=== PATIENT | male | born 1955 | race Native Hawaiian/Other Pacific Islander ===

== ENCOUNTER 2020-08-12 09:22 | Emergency (ER) | payer OTHER ==
[~2020-08-12] VITALS: Ht 182.9 cm; Wt 84.6 kg
[2020-08-12 09:22] VITALS: TEMP 97.3
[2020-08-12 10:39] LABS: PLATELET COUNT 291 K/uL (142-355)
[2020-08-12 10:54] LABS: POTASSIUM 3.8 mmol/L (3.6-5.2); SODIUM 137 mmol/L (136-145)
[2020-08-12 16:29] VITALS: BP 113/44
== END 2020-08-12 16:29 | disposition short-term general hospital (02) ==
LOC: ED 09:22
PROVIDERS: Emergency Medicine Emergency Medical Services
DX: J18.9 Pneumonia, unspecified organism (principal); A41.9 Sepsis, unspecified organism; Z03.818 Encounter for observation for suspected exposure to other biological agents ruled out
CPT/HCPCS: 80053; 83605; 83690; 84484; 85027; 87040; 87635; 93005; 96360; 96361; 96365; 96366; 96375; 99285; J0696; J2405; J2543; J3490; U0003